=== PATIENT | male | born 1930 | race Caucasian/White ===

== ENCOUNTER 2016-12-10 10:29 | Inpatient (IN) | payer MEDICARE ==
[~2016-12-10] VITALS: Ht 180.3 cm; Wt 92.5 kg
[~2016-12-10 10:29] MED LIST: ALBU8.5H5 INH; CHOL3000 PO; CYAN100063 IM; DIPH25CA61 PO; HYDR25TA11 PO; LACT1CAP35 PO; METH10003 PO; OMEG-107 PO; POLY17PO5 PO; PROP60CA PO; VITAMIN C PO
[2016-12-10] MEDS ORDERED: SODIUM CHLORIDE 0.9% 1,000ML IVBOLUS ONE (11:30)
[2016-12-10] MEDS ORDERED: SODIUM CHLORIDE FLUSH 10ML SYR IVF ONE (11:30)
[2016-12-10] MEDS ORDERED: FURO80TA3 PO (11:34)
[2016-12-10] MEDS ORDERED: PSYL174P2 PO (11:34)
[2016-12-10 11:43] LABS: HEMOGLOBIN 16.2 g/dL (13.7-18.0)
[2016-12-10 11:54] LABS: ASPARTATE AMINO TRANSFERASE 15 U/L (15-37); BLOOD UREA NITROGEN 12 mg/dL (7-18)
[2016-12-10 12:08] LABS: IS PT STATUS REG ER OR PRE ER? YES
[2016-12-10] MEDS ORDERED: TRAM-28 PO (12:26)
[2016-12-10] MEDS ORDERED: DOCUSATE 100 MG CAPSULE PO PRN (15:00)
[2016-12-10] MEDS ORDERED: HYDROcodone/APAP 5/325 TABLET PO PRN (15:00)
[2016-12-10] MEDS ORDERED: BISACODYL 10 MG SUPP PR PRN (15:00)
[2016-12-10] MEDS ORDERED: POLYETHYLENE GLYCOL 17 GM PACKET PO PRN (15:00)
[2016-12-10] MEDS ORDERED: ACETAMINOPHEN 325 MG TABLET PO PRN (15:00)
[2016-12-10] MEDS ORDERED: ONDANSETRON 2MG/ML, 2ML IVP PRN (15:00)
[2016-12-10] MEDS ORDERED: ENOXAPARIN 40 MG/0.4 ML ONE (18:25)
[2016-12-10] MEDS ORDERED: FUROSEMIDE 40 MG/4 ML ONE (18:25)
[2016-12-10] MEDS: FUROSEMIDE 40 MG/4 ML IV SCH (18:27)
[2016-12-10] MEDS: ENOXAPARIN 40 MG/0.4 ML SQ SCH (18:27)
[2016-12-10] MEDS: SODIUM CHLORIDE FLUSH 10ML SYR IVF SCH (21:00)
[2016-12-10] MEDS ORDERED: TEMPLATE NON-FORMULARY MED. (Lactobacillus Acidophilus** (Probiotic**) 1 TAB) PO SCH (21:00)
[2016-12-10 21:19] VITALS: BP 121/74
[2016-12-11 02:14] VITALS: BP 151/84
[2016-12-11 02:15] VITALS: BP 128/83
[2016-12-11 02:22] VITALS: BP 143/84
[2016-12-11 06:31] LABS: BLOOD UREA NITROGEN 12 mg/dL (7-18)
[2016-12-11 07:49] VITALS: BP_SYST 150; BP_SYST 151; BP_DIAS 84; BP_DIAS 85
[2016-12-11] MEDS: PROPRANOLOL 60 MG CAP.SA.24H PO SCH (08:30)
[2016-12-11] MEDS: SODIUM CHLORIDE FLUSH 10ML SYR IVF SCH ×2 (08:32→21:00)
[2016-12-11] MEDS: FUROSEMIDE 40 MG/4 ML IV SCH ×2 (08:32→17:07)
[2016-12-11 13:59] VITALS: BP_SYST 143; BP_SYST 147; BP_SYST 150; BP_DIAS 72; BP_DIAS 81; BP_DIAS 83
[2016-12-11] MEDS: ENOXAPARIN 40 MG/0.4 ML SQ SCH (17:11)
[2016-12-11 19:50] VITALS: BP_SYST 131; BP_SYST 142; BP_SYST 152; BP_DIAS 72; BP_DIAS 76; BP_DIAS 84
[2016-12-11] MEDS ORDERED: LACTOBACILLUS CHEW TABLET PO SCH (21:00)
[2016-12-12 01:48] VITALS: BP 143/87
[2016-12-12 01:50] VITALS: BP 148/82
[2016-12-12 01:52] VITALS: BP 133/88
[2016-12-12] MEDS: PROPRANOLOL 60 MG CAP.SA.24H PO SCH (08:15)
[2016-12-12] MEDS: SODIUM CHLORIDE FLUSH 10ML SYR IVF SCH (08:15)
[2016-12-12] MEDS: FUROSEMIDE 40 MG/4 ML IV SCH (08:15)
[2016-12-12 08:17] VITALS: BP 129/87
== END 2016-12-12 13:52 | disposition home or self-care (01) | DRG 947 ==
LOC: ED 14:02 → EDIP 14:09 → SUATTDRO 14:18 → 3NE 21:15
PROC: 0T9B70Z Drainage of Bladder with Drainage Device, Via Natural or Artificial Opening (ICD-10-PCS; principal; 2016-12-10)
DX: R53.1 Weakness (principal); I50.33 Acute on chronic diastolic (congestive) heart failure; J98.11 Atelectasis; I11.0 Hypertensive heart disease with heart failure; M54.9 Dorsalgia, unspecified; M19.90 Unspecified osteoarthritis, unspecified site; G89.29 Other chronic pain; I35.0 Nonrheumatic aortic (valve) stenosis; T40.4X5A Adverse effect of other synthetic narcotics, initial encounter; I95.1 Orthostatic hypotension; M54.5 Low back pain; Z66 Do not resuscitate; Z82.49 Family history of ischemic heart disease and other diseases of the circulatory system; Z99.81 Dependence on supplemental oxygen; Z88.0 Allergy status to penicillin; Y92.9 Unspecified place or not applicable
CPT/HCPCS: 36415; 70450; 71010; 80048; 80053; 81001; 82533; 82550; 82607; 82746; 83605; 83735; 83880; 84436; 84443; 84484; 85025; 93005; 93306; 96361; 96372; 96374; J1650; J1940; J7030; Q0177